=== PATIENT | male | born 1985 | race Two or more races ===

== ENCOUNTER 2019-03-20 06:11 | Emergency (ER) | payer MEDICARE, MEDICAID ==
[~2019-03-20] VITALS: Ht 167.6 cm; Wt 72.0 kg
[2019-03-20 07:05] VITALS: BP 126/94
[2019-03-20] MEDS ORDERED: LORazepam 2 MG TABLET PO ONE (07:15)
[2019-03-20] MEDS ORDERED: ACETAMINOPHEN 500 MG TABLET PO ONE (07:15)
== END 2019-03-20 08:15 | disposition home or self-care (01) ==
LOC: EMS 06:16
DX: F15.10 Other stimulant abuse, uncomplicated (principal); F41.9 Anxiety disorder, unspecified; Z88.0 Allergy status to penicillin